=== PATIENT | male | born 1995 | race Caucasian/White ===

== ENCOUNTER → 2018-12-03 | Outpatient (REF) | payer OTHER | LOC: M SFHCLERA 19:19 | PROVIDERS: ATTEND Physician Assistant | DX: R52 Pain, unspecified (principal) ==

== ENCOUNTER → 2018-12-03 | Outpatient (CLI) | payer OTHER ==
[~2018-12-03] MED LIST: AZIT-12 PO; HYDR-3363 PO; SERT50TA PO; TRAZO50TA PO
--- NOTE | 2018-12-03 18:43 | REP ---
CHEST, TWO VIEWS: There is no evidence of acute infiltrate. No pleural effusion is seen. The heart is normal in size. The mediastinal silhouette is unremarkable. The visualized osseous structures are intact. IMPRESSION: No acute pulmonary disease. Electronically Signed by Tejas Murray MD 12/03/2018 08:22 P
== END ==
LOC: M LRY 17:39
PROVIDERS: ATTEND Physician Assistant
DX: R07.89 Other chest pain (principal)

== ENCOUNTER 2018-12-12 14:58 | Inpatient (IN) | payer OTHER ==
[~2018-12-12] VITALS: Ht 177.8 cm; Wt 81.0 kg
[2018-12-12 15:30] LABS: HEMATOCRIT 41.4 % (42.0-52.0); MEAN CORPUSCULAR HEMOGLOBIN 30.8 pg (27.0-33.0); MEAN CORPUSCULAR HGB CONC 33.8 g/dl (32.0-36.5); MEAN CORPUSCULAR VOLUME 91.2 fl (80.0-96.0); PLATELET COUNT, AUTOMATED 234 10^3/uL (150-450); RED BLOOD COUNT 4.54 10^6/uL (4.30-6.10); WHITE BLOOD COUNT 11.6 10^3/uL (4.0-10.0)
[2018-12-12 15:54] LABS: ACETAMINOPHEN LEVEL < 2.0 UG/ML (10.0-30.0); ALT/SGPT 20 U/L (12-78); BILIRUBIN,DIRECT 0.1 MG/DL (0.0-0.2); BILIRUBIN,TOTAL 0.5 MG/DL (0.2-1.0); BLOOD UREA NITROGEN 11 MG/DL (7-18); CALCIUM LEVEL 8.5 MG/DL (8.5-10.1); CARBON DIOXIDE LEVEL 27 MEQ/L (21-32); CHLORIDE LEVEL 105 MEQ/L (98-107); CREATININE FOR GFR 0.98 MG/DL (0.70-1.30); ETHYL ALCOHOL (ETHANOL) < 0.003 % (0.000-0.010); GLOMERULAR FILTRATION RATE > 60.0 (>60); GLUCOSE, FASTING 98 MG/DL (70-100); POTASSIUM SERUM 3.7 MEQ/L (3.5-5.1); SALICYLATE LEVEL < 1.7 MG/DL (5.0-30.0); SODIUM LEVEL 139 MEQ/L (136-145); THYROID STIMULATING HORMONE 0.559 uIU/ML (0.358-3.740); TOTAL PROTEIN 7.3 GM/DL (6.4-8.2)
[2018-12-12 16:53] LABS: AMPHETAMINES LEVEL URINE NEGATIVE (NEGATIVE); BARBITURATES URINE NEGATIVE (NEGATIVE); BENZODIAZEPINES URINE NEGATIVE (NEGATIVE); CANNABINOIDS URINE NEGATIVE (NEGATIVE); COCAINE METABOLITE URINE NEGATIVE (NEGATIVE); METHADONE URINE NEGATIVE (NEGATIVE); OPIATES URINE NEGATIVE (NEGATIVE); PHENCYCLIDINE URINE NEGATIVE (NEGATIVE)
[2018-12-12] MEDS ORDERED: MAALOX 30 ML SUSP *UDC PO PRN (19:30)
[2018-12-12] MEDS ORDERED: MOM 30ML SUSPENSION UDC PO PRN (19:30)
[2018-12-12 20:57] VITALS: BP 135/83
[2018-12-13] MEDS: ACETAMINOPHEN TAB 650MG DOSE (2X325MG) PO PRN ×2 (06:24→18:38)
[2018-12-13 06:42] VITALS: BP 131/82
--- NOTE | 2018-12-13 10:49 | HPE ---
DATE OF ADMISSION: 12/12/2018 HISTORY OF PRESENT ILLNESS (HPI): Please refer to the psychiatric history and evaluation for further details on this admission. This examination and history is intended for medical issues, which may need treatment, followup or consult on this 23-year-old male. ALLERGIES: CAT HAIR EXTRACT. PRIMARY CARE PROVIDER: [facility]. SOCIAL HISTORY: He is a single soldier, currently stationed at [employer]. Ethyl alcohol (EtOH): He drinks 2-3 times a month. Smokes none. Recreational drug use none. PAST MEDICAL HISTORY: Negative. PAST SURGICAL HISTORY: Negative. HOME MEDICATIONS: None. FAMILY HISTORY: Noncontributory. LABORATORY STUDIES: WBC 11.6, hemoglobin 14, hematocrit 21.4, platelets 234. Electrolytes were normal. BUN 11, creatinine 0.98. Urine for toxicology negative. 10 system was done. It was unremarkable other than the patient has a smallpox vaccine on his left upper arm. PHYSICAL EXAMINATION: 23-year-old, cooperative male, in no acute distress. Height 70 inches. Weight 80 kg. Body mass index (BMI) 25.3. Blood pressure 135/83, pulse 100, respirations 18, temperature 98.9. Patient is alert and oriented times three. Pupils equal and react to light. Extraocular movements (EOMS) intact. Cornea and sclerae clear. Conjunctiva is normal. No facial asymmetry. Pharynx, tongue and gums pink and moist. Tongue is midline. Neck is supple, without lymphadenopathy. No thyromegaly. No goiter. Chest clear to auscultation, without wheeze or retraction. Heart is regular, without murmur, rub or gallop. Abdomen benign. Bowel sounds positive. Genitourinary ()/rectal not done. Extremities show equal strength, full range of motion. No cyanosis, clubbing or edema. Peripheral pulse equal and palpable bilaterally. Skin is warm and dry. Left upper arm shows pustule from smallpox vaccine. IMPRESSION/PLAN: Psychiatric: Plan per psychiatry. Keep the vaccine covered. Leukocytosis probably secondary to the vaccine. We will recheck CBC in the a.m..
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
[2018-12-13 18:41] VITALS: BP 123/75
[2018-12-13] MEDS ORDERED: hydrOXYzine 25 MG TAB PO PRN (20:15)
[2018-12-13] MEDS ORDERED: CEPACOL LOZENGE PO PRN (20:45)
[2018-12-13] MEDS ORDERED: AZITHROMYCIN 250 MG TAB PO SCH (21:00)
[2018-12-13 21:34] LABS: BASO # 0.1 10^3/uL (0.0-0.2); BASO % 0.4 % (0.0-1.0); EOS # 0.4 10^3/uL (0.0-0.50); EOS % 2.6 % (0.0-3.0); HEMATOCRIT 41.8 % (42.0-52.0); HEMOGLOBIN 13.9 g/dl (13.5-17.5); LYMPH # 2.2 10^3/uL (1.5-6.5); LYMPH % 15.8 % (24.0-44.0); MEAN CORPUSCULAR HEMOGLOBIN 30.8 pg (27.0-33.0); MEAN CORPUSCULAR HGB CONC 33.3 g/dl (32.0-36.5); MEAN CORPUSCULAR VOLUME 92.5 fl (80.0-96.0); MONO # 1.8 10^3/uL (0.0-0.8); MONO % 13.2 % (0.0-5.0); NEUTROPHILS # 9.3 10^3/uL (1.8-7.7); NEUTROPHILS % 67.6 % (36.0-66.0); PLATELET COUNT, AUTOMATED 227 10^3/uL (150-450); RED BLOOD COUNT 4.52 10^6/uL (4.30-6.10); WHITE BLOOD COUNT 13.7 10^3/uL (4.0-10.0)
[2018-12-13 21:58] LABS: ALBUMIN 3.8 GM/DL (3.2-5.2); ALT/SGPT 30 U/L (12-78); BILIRUBIN,TOTAL 0.6 MG/DL (0.2-1.0); BLOOD UREA NITROGEN 13 MG/DL (7-18); CALCIUM LEVEL 8.7 MG/DL (8.5-10.1); CARBON DIOXIDE LEVEL 29 MEQ/L (21-32); CHLORIDE LEVEL 103 MEQ/L (98-107); CREATININE FOR GFR 1.07 MG/DL (0.70-1.30); GLOMERULAR FILTRATION RATE > 60.0 (>60); GLUCOSE, FASTING 93 MG/DL (70-100); POTASSIUM SERUM 3.9 MEQ/L (3.5-5.1); SODIUM LEVEL 139 MEQ/L (136-145); TOTAL PROTEIN 7.3 GM/DL (6.4-8.2)
[2018-12-13 22:01] LABS: INFLUENZA A AMPLIFICATION NEGATIVE (NEGATIVE); INFLUENZA B AMPLIFICATION NEGATIVE (NEGATIVE)
[2018-12-13] MEDS: traZODone 50 MG TAB PO PRN (22:01)
[2018-12-13] MEDS: AZITHROMYCIN 250 MG TAB PO SCH (22:02)
--- NOTE | 2018-12-13 22:18 | IPNPDOC ---
Text Note Date of Service The patient was seen on 12/13/18. NOTE The patient is 23 Y male, from [facility] due to suicidal attempt, and he was a dmitted to [facility]; he developed mild fever, GUAN, coughing and whole body aching. He had smallpox vaccination a week ago; Dr Crabtree started him on Azithromycin and called me for consult. I saw and examined him in [facility]. his vitals are WNL except mild fever. Physical examinations are WNL. there are some local inflammation reactions in the vaccination site. His CBC and BMP and chest x ray are WNL except mild leukocytosis. His influenzas screen are negative for influenza A and B. So his symptoms are consistent with side effects of smallpox vaccination. I explained to nurse staff and patient himself. I advised to treat him supportively and advised patient to cover his vaccination site by gauze until it healed and avoid the spreading of virus. VS,Fishbone, I+O VS, Fishbone, I+O Laboratory Tests 12/13/18 21:27 Red Blood Count 4.52, Mean Corpuscular Volume 92.5, Mean Corpuscular Hemoglobin 30.8, Mean Corpuscular Hemoglobin Concent 33.3, Red Cell Distribution Width 12.3, Neutrophils (%) (Auto) 67.6 H, Lymphocytes (%) (Auto) 15.8 L, Monocytes (%) (Auto) 13.2 H, Eosinophils (%) (Auto) 2.6, Basophils (%) (Auto) 0.4, Neutrophils # (Auto) 9.3 H, Lymphocytes # (Auto) 2.2, Monocytes # (Auto) 1.8 H, Eosinophils # (Auto) 0.4, Basophils # (Auto) 0.1, Calcium Level 8.7, Aspartate Amino Transf (AST/SGOT) 91 H, Alanine Aminotransferase (ALT/SGPT) 30, Alkaline Phosphatase 77, Total Bilirubin 0.6, Total Protein 7.3, Albumin 3.8 Vital Signs Date Time Temp Pulse Resp B/P (MAP) Pulse Ox O2 Delivery O2 Flow Rate FiO2 12/13/18 18:41 99.0 95 16 123/75 (91) 12/13/18 11:30 Room Air 12/12/18 20:04 98 DULCE MARIA WILLIS MD Dec 13, 2018 22:18
[2018-12-14 06:13] VITALS: BP 99/52
[2018-12-14] MEDS: AZITHROMYCIN 250 MG TAB PO SCH (08:41)
[2018-12-14] MEDS: SERTRALINE HCL 50 MG TAB PO SCH (08:41)
[2018-12-14] MEDS: ACETAMINOPHEN TAB 650MG DOSE (2X325MG) PO PRN (08:42)
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
[2018-12-14] MEDS ORDERED: ONDANSETRON 4 MG TAB (S0181) PO PRN (09:45)
--- NOTE | 2018-12-14 10:30 | REP ---
PA and lateral chest: Comparison is 12/13/2018. The lung yung are clear. The cardiac size is normal. The evelyn, mediastinum, and skeletal structures are unremarkable. Impression: Negative PA and lateral chest. . There is no interval change. Electronically Signed by Tejas Hurst MD 12/14/2018 08:19 A
[2018-12-14 18:00] VITALS: BP 100/58
[2018-12-14] MEDS: traZODone 50 MG TAB PO PRN (21:42)
[2018-12-15 06:54] VITALS: BP 105/64
[2018-12-15] MEDS: SERTRALINE HCL 50 MG TAB PO SCH (09:01)
[2018-12-15] MEDS: AZITHROMYCIN 250 MG TAB PO SCH (09:01)
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
[2018-12-15 18:08] VITALS: BP 118/60
[2018-12-15] MEDS: traZODone 50 MG TAB PO PRN (21:37)
[2018-12-16] MEDS: SERTRALINE HCL 50 MG TAB PO SCH (08:23)
[2018-12-16] MEDS: AZITHROMYCIN 250 MG TAB PO SCH (08:23)
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
[2018-12-16 18:09] VITALS: BP 120/65
[2018-12-16] MEDS: traZODone 50 MG TAB PO PRN (22:01)
[2018-12-17 06:00] VITALS: BP 115/57
[2018-12-17] MEDS: AZITHROMYCIN 250 MG TAB PO SCH (08:10)
[2018-12-17] MEDS: SERTRALINE HCL 50 MG TAB PO SCH (08:10)
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
[2018-12-17] MEDS ORDERED: AZIT-12 PO (09:04)
[2018-12-17] MEDS ORDERED: SERT50TA PO (09:04)
[2018-12-17] MEDS ORDERED: TRAZO50TA PO (09:04)
[2018-12-17] MEDS ORDERED: HYDR-3363 PO (09:04)
== END 2018-12-17 10:55 | disposition home or self-care (01) | DRG 880 ==
LOC: M ED 14:58 → M ED INP 19:29 → M PSY 20:37
PROVIDERS: ADMIT Psychiatry & Neurology Psychiatry; ATTEND Psychiatry & Neurology Psychiatry
DX: F41.1 Generalized anxiety disorder (principal); R45.851 Suicidal ideations; F32.9 Major depressive disorder, single episode, unspecified; F43.10 Post-traumatic stress disorder, unspecified; J06.9 Acute upper respiratory infection, unspecified; Z62.810 Personal history of physical and sexual abuse in childhood